=== PATIENT | female | born 1955 | race Hispanic/Latino ===

== ENCOUNTER 2016-11-21 13:26 | Outpatient (CLI) | payer OTHER ==
[2016-11-21 14:44] LABS: Hematocrit 41.7 % (36.0-47.0); Mean Platelet Volume 7.6 fL (7.4-10.4); Red Blood Cell (RBC) Count 4.58 mill/uL (4.20-5.40); White Blood Cell (WBC) Count 10.3 thou/uL (4.8-10.8)
[2016-11-21 14:52] LABS: PTT 29.8 SEC (22.9-36.1)
[2016-11-21 15:10] LABS: ALT (SGPT) 17 U/L (8-55); AST (SGOT) 16 U/L (5-34); Alkaline Phosphatase 72 U/L (40-150); Anion Gap 11 mmol/L (10-20); BUN (Urea Nitrogen) 9 mg/dL (9.8-20.1); Bilirubin, Total 0.4 mg/dL (0.2-1.2); Calc. Creatinine Clearance 0 mL/min (70-130); Calcium 9.4 mg/dL (7.8-10.44); Carbon Dioxide 21 mmol/L (22-29); Chloride 105 mmol/L (98-107); Estimated GFR-MDRD Greater than 90; Globulin 3.8 g/dL (2.4-3.5); Protein, Total 7.4 g/dL (6.0-8.3)
== END 2016-11-21 13:27 | disposition home or self-care (01) ==
LOC: LABBT 13:26
PROVIDERS: ATTEND Internal Medicine Cardiovascular Disease
DX: Z01.818 Encounter for other preprocedural examination (principal); R94.39 Abnormal result of other cardiovascular function study
CPT/HCPCS: 80053; 85027; 85610; 85730; 93005; 93010

== ENCOUNTER → 2016-11-25 | Day surgery (SDC) | payer OTHER ==
[2016-11-21 13:41] VITALS: BMI 39.1
[~2016-11-25] MED LIST: Diazepam 5 MG TAB ONE; Diazepam 5 MG TAB PO SCH; Fentanyl 100 MCG/2 ML VIAL ONE; Heparin 10,000 UNITS/1 ML VIAL ONE; Iopamidol 370 76% 100 ML VIAL ONE; Midazolam HCl 2 mg/2 ml Vial ONE; Nitroglycerin 100MG/250ML BOT 250 ML ONE; Sodium Chloride 0.9% 1,000 ML IV SCH; diphenhydrAMINE HCl 50 MG/ML 1 ML VIAL IVP SCH; diphenhydrAMINE HCl 50 MG/ML 1 ML VIAL ONE; methylPREDNISolone Sod Succ/PF 125 MG/2 ML VIAL IVP SCH; methylPREDNISolone Sod Succ/PF 125 MG/2 ML VIAL ONE
== END ==
LOC: CCL 05:56
PROVIDERS: ATTEND Internal Medicine Cardiovascular Disease
DX: I25.10 Atherosclerotic heart disease of native coronary artery without angina pectoris (principal); E78.5 Hyperlipidemia, unspecified; Z79.899 Other long term (current) drug therapy; Z91.041 Radiographic dye allergy status; Z86.73 Personal history of transient ischemic attack (TIA), and cerebral infarction without residual deficits
CPT/HCPCS: 80061; 93458; 99153; C1769; J1200; J1644; J2250; J2930; J3010

== ENCOUNTER 2016-11-29 08:08 | Outpatient (CLI) | payer OTHER ==
[2016-11-29 09:09] LABS: #Basophils 0.1 thou/uL (0.0-0.2); #Eosinphils 0.3 thou/uL (0.0-0.7); #Lymphocytes 3.1 thou/uL (1.20-3.40); #Monocytes 0.6 thou/uL (0.11-0.59); #Neutrophils 6.8 thou/uL (1.40-6.50); %Basophils 0.8 % (0.0-1.0); %Eosinophils 2.5 % (0.0-10.0); %Lymphocytes 28.6 % (21.0-51.0); %Monocytes 5.9 % (0.0-10.0); Hematocrit 45.1 % (36.0-47.0); Mean Platelet Volume 7.2 fL (7.4-10.4); Red Blood Cell (RBC) Count 5.01 mill/uL (4.20-5.40); White Blood Cell (WBC) Count 10.9 thou/uL (4.8-10.8)
[2016-11-29 09:25] LABS: Anion Gap 15 mmol/L (10-20); BUN (Urea Nitrogen) 18 mg/dL (9.8-20.1); Calc. Creatinine Clearance 0 mL/min (70-130); Calcium 9.7 mg/dL (7.8-10.44); Carbon Dioxide 23 mmol/L (22-29); Chloride 103 mmol/L (98-107); Estimated GFR-MDRD 89
== END 2016-11-29 08:09 | disposition home or self-care (01) ==
LOC: LABBT 08:08
PROVIDERS: ATTEND Surgery
DX: Z01.812 Encounter for preprocedural laboratory examination (principal); C50.919 Malignant neoplasm of unspecified site of unspecified female breast
CPT/HCPCS: 80048; 85025

== ENCOUNTER 2016-12-06 06:54 | Day surgery (SDC) | payer OTHER ==
[2016-11-29 08:29] VITALS: BMI 39.1
[2016-12-06] MEDS ORDERED: CEFAZOLIN/Water 2 GM/20 ML SYRINGE ONE (11:19)
[2016-12-06] MEDS ORDERED: Lidocaine 2% w/Epinephrine 1:200K 20 ML VIAL ONE (11:32)
[2016-12-06] MEDS ORDERED: Bupivacaine 0.25% HCL 30 ML VIAL ONE (11:32)
[2016-12-06] MEDS ORDERED: Midazolam HCl 2 mg/2 ml Vial ONE (11:42)
[2016-12-06] MEDS ORDERED: Fentanyl 100 MCG/2 ML VIAL ONE ×3 (11:42→13:48)
[2016-12-06] MEDS ORDERED: Lidocaine 1% PF 5 ML VIAL ONE (12:25)
[2016-12-06] MEDS ORDERED: Propofol 200 MG/20 ML VIAL ONE (12:25)
[2016-12-06] MEDS ORDERED: Dexamethasone 20 MG/5 ML VIAL ONE (12:25)
[2016-12-06] MEDS ORDERED: Ketorolac Tromethamine 30 MG/ML VIAL ONE (12:25)
[2016-12-06] MEDS ORDERED: Ondansetron HCl/PF 4 MG/2 ML Vial ONE (12:25)
[2016-12-06] MEDS ORDERED: HYDROcodone/Acetaminophen 5/325 mg Tablet ONE (14:48)
--- NOTE | 2016-12-09 11:54 | OP ---
DATE OF SURGERY: 12/06/2016 PREOPERATIVE DIAGNOSIS: Left breast ductal carcinoma in situ. POSTOPERATIVE DIAGNOSIS: Left breast ductal carcinoma in situ. PROCEDURE: Left partial mastectomy after needle localization. SURGEON: Isaac Ji M.D. ANESTHESIA: General. ESTIMATED BLOOD LOSS: Minimal. COMPLICATIONS: None. SPECIMEN: Left breast mass marked two short superior, one long lateral and sent to pathology for fi nal diagnosis. INDICATIONS: The patient is a 61-year-old female who presents with a core needle biopsy showing lef t breast DCIS. Risks, benefits, and alternatives were discussed and she elects to proceed with part ial mastectomy. The patient underwent needle localization wire placement in an area of previous bio psy preoperatively. TECHNIQUE: The patient was taken to the operating room and laid supine on the operating room table. After general anesthetic was obtained, left breast and chest was prepped and draped in a sterile f ashion. Transverse incision was made between the needle localization wire and the nipple. Flaps we re raised superiorly, inferiorly, laterally around the needle localization wire. The breast mass is marked with two short superior, one long lateral and sent to x-ray which revealed the previous clip to be in the specimen. It was then sent to path for final diagnosis. The wound was irrigated. Lo jose anesthetic was applied. The wound was closed using 3-0 Vicryl, 4-0 Monocryl, and Dermabond. Th e patient was en route to recovery in stable condition. All instrument counts, needle counts, and l ap counts were correct.
== END 2016-12-06 15:22 | disposition home or self-care (01) ==
LOC: SDC 06:54
PROVIDERS: ATTEND Surgery
PROC: 0HBU0ZZ Excision of Left Breast, Open Approach (ICD-10-PCS; principal; 2016-12-06)
DX: D05.12 Intraductal carcinoma in situ of left breast (principal); Z79.1 Long term (current) use of non-steroidal anti-inflammatories (NSAID); Z79.899 Other long term (current) drug therapy; Z91.041 Radiographic dye allergy status; Z91.013 Allergy to seafood; Z90.49 Acquired absence of other specified parts of digestive tract; Z98.890 Other specified postprocedural states
CPT/HCPCS: 19281; 76098; 88307; 96374; J1100; J1885; J2001; J2250; J2405; J2704; J3010; S0020

== ENCOUNTER 2020-03-09 06:58 | Day surgery (SDC) | payer OTHER ==
[2020-03-07 12:05] VITALS: BMI 39.4
[2020-03-09] MEDS ORDERED: PROPOFOL 200 MG/20 ML VIAL ONE (09:30)
[2020-03-09] MEDS ORDERED: ePHEDrine 50 MG/ML VIAL ONE (09:30)
[2020-03-09] MEDS ORDERED: Ketorolac Tromethamine 30 MG/ML VIAL ONE (09:30)
[2020-03-09] MEDS ORDERED: Ondansetron PF 4 MG/2 ML Vial ONE (09:30)
[2020-03-09] MEDS ORDERED: Dexamethasone 20 MG/5 ML VIAL ONE (09:30)
[2020-03-09] MEDS ORDERED: Lidocaine 1% PF 5 ML VIAL ONE (09:30)
[2020-03-09] MEDS ORDERED: Rocuronium Bromide 10 MG/ML (10ML VIAL) ONE (09:30)
[2020-03-09] MEDS ORDERED: Bupivacaine 0.25% HCL 30 ML VIAL ONE (10:28)
[2020-03-09] MEDS ORDERED: XYLOCAINE 2%-EPI 1:100,000 20 ML VIAL ONE (10:28)
[2020-03-09] MEDS ORDERED: Midazolam HCl 2 mg/2 ml Vial ONE (10:33)
[2020-03-09] MEDS ORDERED: Dexmedetomidine 200 MCG/2 ML VIAL ONE (10:33)
[2020-03-09] MEDS ORDERED: Fentanyl 100 MCG/2 ML VIAL ONE (10:33)
[2020-03-09] MEDS ORDERED: SUGAMMADEX SODIUM 500 MG/5 ML VIAL ONE (11:36)
--- NOTE | 2020-03-09 11:42 | MMO ---
EXAM: MAMMO Brst Loc Dev Mammo Guide PROVIDED CLINICAL HISTORY: Grouping of microcalcifications within the lower central right breast. Wire and needle localization prior to excisional biopsy was requested. COMPARISON: Mammograms on 09/27/2019. TECHNIQUE: After informed consent was obtained, the microcalcifications in the lower right breast were localized in the CC projection from an inferior approach. Area was meticulously prepped. The skin and subcutaneous tissues were infiltrated with buffered 1% lidocaine for local anesthesia. A [place] locali zation needle and wire were advanced. A CC projection and lateral medial projection were performed. Needle was withdrawn, and the wire was further advanced. Final right lateral medial view was obtained . A dry sterile dressing was placed. Patient tolerated the procedure well and without immediate complication. Patient was transported to surgery for excisional biopsy. IMPRESSION: Technically successful needle and wire localization of a grouping of microcalcifications in the lower right breast.
--- NOTE | 2020-03-09 11:47 | MMO ---
EXAM: MAMMO Surgial Specimen PROVIDED CLINICAL HISTORY: Specimen mammogram post needle and wire localization with excisional biopsy. COMPARISON: Mammograms on 09/27/2019 FINDINGS/IMPRESSION: Single specimen mammogram is submitted. Specimen demonstrates a grouping of microcalcifications seen centrally within the specimen. Additional scattered calcifications are also seen in the provided specimen. The [facility] [place] localization wire is not in place within the specimen. The microcalcifications co rrespond to the grouping of microcalcifications seen on prior mammograms. Dr. Ji was notified of the findings in the operating room.
[2020-03-09] MEDS ORDERED: Promethazine HCl 25 MG/ML VIAL ONE (12:33)
--- NOTE | 2020-03-09 17:09 | EKG ---
Test Reason : PREOP Blood Pressure : / mmHG Vent. Rate : 064 BPM Atrial Rate : 064 BPM P-R Int : 152 ms QRS Dur : 086 ms QT Int : 454 ms P-R-T Axes : 009 019 107 degrees QTc Int : 468 ms Normal sinus rhythm Cannot rule out Inferior infarct , age undetermined T wave abnormality, consider lateral ischemia Abnormal ECG No previous ECGs available Confirmed by DR. Heath AGUILERA ([id number]) on 03/09/2020 5:08:54 PM Referred By: CEASAR Confirmed By:DR. Heath AGUILERA
--- NOTE | 2020-03-10 13:25 | OP ---
DATE OF PROCEDURE: 03/09/2020 PREOPERATIVE DIAGNOSIS: Right breast mass. POSTOPERATIVE DIAGNOSIS: Right breast mass. PROCEDURE PERFORMED: Excision of right breast mass after needle localization. ANESTHESIA: General. ESTIMATED BLOOD LOSS: Minimal. COMPLICATIONS: None. SPECIMENS: Right breast mass. DESCRIPTION OF PROCEDURE: The patient was taken to the operating room and laid supine on the operating table. After general anesthetic was obtained, the right breast was prepped and draped in a sterile fashion. An incision was made near entrance of needle localization wire on the chest. Flaps were raised superior, inferior, posterior, and lateral around the end of needle localization wire. Specimen x-ray revealed the abnormality to be in the specimen. Specimen was sent to Path for final diagnosis. The wound was irrigated. Local anesthetic was applied. The wound was closed using through 3-0 Vicryl, 4-0 Monocryl, and Dermabond. The patient was sent to Recovery in stable condition. All instrument counts, needle counts, and lap counts were correct. Job ID: [id number]
== END 2020-03-09 13:35 | disposition home or self-care (01) ==
LOC: SDC 06:58
PROVIDERS: ATTEND Surgery
PROC: 0HBT0ZZ Excision of Right Breast, Open Approach (ICD-10-PCS; principal; 2020-03-09)
DX: N60.21 Fibroadenosis of right breast (principal); D24.1 Benign neoplasm of right breast; N60.91 Unspecified benign mammary dysplasia of right breast; Z79.899 Other long term (current) drug therapy; Z91.041 Radiographic dye allergy status
CPT/HCPCS: 19281; 76098; 88307; 88341; 88342; 93005; 93010; J0690; J1100; J1885; J2250; J2405; J2550; J2704; J3010; J3490; S0020

== ENCOUNTER 2020-03-09 21:02 | Observation (INO) | payer SELFPAY ==
[2020-03-09 21:30] LABS: #Lymphocytes 0.9 thou/uL (1.20-3.40); #Monocytes 0.1 thou/uL (0.11-0.59); #Neutrophils 7.9 thou/uL (1.40-6.50); %Basophils 0.1 % (0.0-1.0); %Eosinophils 0.1 % (0.0-10.0); %Lymphocytes 10.4 % (21.0-51.0); %Monocytes 0.6 % (0.0-10.0); %Neutrophils 88.8 % (42.0-75.0); Hemoglobin 13.8 g/dL (12.0-16.0); Mean Corpuscular HGB CONC 32.4 g/dL (32.0-36.0); Mean Corpuscular Volume 89.8 fL (78.0-98.0); Mean Platelet Volume 7.9 fL (7.4-10.4); Platelet Count 297 thou/uL (130-400); RBC Distribution Width 12.9 % (11.5-14.5); Red Blood Cell (RBC) Count 4.74 mill/uL (4.20-5.40)
[2020-03-09 21:36] LABS: PTT 28.6 sec (22.9-36.1); Prothrombin Time 13.3 sec (12.0-14.7)
[2020-03-09 21:45] LABS: ALT (SGPT) 20 U/L (8-55); AST (SGOT) 15 U/L (5-34); Albumin 3.7 g/dL (3.4-4.8); Alkaline Phosphatase 71 U/L (40-110); Anion Gap 15 mmol/L (10-20); BUN (Urea Nitrogen) 12 mg/dL (9.8-20.1); Bilirubin, Total 0.3 mg/dL (0.2-1.2); CK (CPK) 54 U/L (29-168); Calc. Creatinine Clearance 0 mL/min (70-130); Calcium 8.9 mg/dL (7.8-10.44); Carbon Dioxide 21 mmol/L (23-31); Chloride 105 mmol/L (98-107); Globulin 3.4 g/dL (2.4-3.5); Glucose 306 mg/dL (80-115); Potassium 4.2 mmol/L (3.5-5.1); Protein, Total 7.1 g/dL (5.8-8.1); Sodium 137 mmol/L (136-145)
[2020-03-09 22:06] LABS: CKMB 1.4 ng/mL (0-6.6)
[2020-03-09 22:46] LABS: Bacteria/HPF None Seen HPF (None Seen); Bilirubin Negative (Negative); Blood, Urine Negative (Negative); Clarity Clear (Clear); Glucose, Urine (Dipstick) Greater than 1000 mg/dL (Negative); Ketone, Urine Trace mg/dL (Negative); Leukocyte Negative Leu/uL (Negative); Nitrite Negative (Negative); Protein, Urine (Dipstick) 30 mg/dL (Neg-Trace); RBC/HPF None Seen HPF (0-3); Specific Gravity, Urine 1.028 (1.002-1.036); Squamous Epithelial 0-3 HPF (0-3); Urobilinogen Normal mg/dL (Less than 2); WBC/HPF 0-3 HPF (0-3); pH, Urine 5.5 (5.0-9.0)
[2020-03-09 22:57] LABS: Medtox Reader # READER 1
[2020-03-09 22:58] LABS: Amphetamine Not Detected (NotDetected); Barbiturates Screen Not Detected (NotDetected); Benzodiazepine Screen Not Detected (NotDetected); Cocaine Metabolite Screen Not Detected (NotDetected); Medtox Control Line Valid? VALID (VALID); Methadone Not Detected (NotDetected); Methamphetamine Detected (NotDetected); Opiate Screen Not Detected (NotDetected); Oxycodone Screen Not Detected (NotDetected); Phencyclidine (PCP) Not Detected (NotDetected); THC/Cannabinoid Screen Not Detected (NotDetected); Tricyclic Screen Not Detected (NotDetected)
[2020-03-09] MEDS ORDERED: Aspirin Chewable 81 MG TAB ONE (23:24)
[2020-03-10 02:05] VITALS: BMI 39.6
[2020-03-10] MEDS ORDERED: Acetaminophen 325 MG TAB PO PRN (03:35)
[2020-03-10] MEDS ORDERED: Acetaminophen 650 MG Suppository PR PRN (03:35)
[2020-03-10] MEDS ORDERED: Dextrose 5% in Water 1,000 ML IV PRN (03:36)
[2020-03-10] MEDS ORDERED: Dextrose 50% Abboject 50 ML SYRINGE SLOW IVP PRN (03:36)
[2020-03-10] MEDS ORDERED: HumaLOG 300 UNITS/3 ML VIAL SC PRN ×2 (03:36)
[2020-03-10 05:33] LABS: #Lymphocytes 1.6 thou/uL (1.20-3.40); #Monocytes 0.8 thou/uL (0.11-0.59); #Neutrophils 10.4 thou/uL (1.40-6.50); %Basophils 0.3 % (0.0-1.0); %Eosinophils 0.1 % (0.0-10.0); %Lymphocytes 12.2 % (21.0-51.0); %Monocytes 6.4 % (0.0-10.0); %Neutrophils 81.1 % (42.0-75.0); Hemoglobin 12.8 g/dL (12.0-16.0); Mean Corpuscular HGB CONC 31.8 g/dL (32.0-36.0); Mean Corpuscular Hemoglobin 28.8 pg (27.0-31.0); Mean Corpuscular Volume 90.6 fL (78.0-98.0); Mean Platelet Volume 7.7 fL (7.4-10.4); Platelet Count 311 thou/uL (130-400); RBC Distribution Width 12.9 % (11.5-14.5); Red Blood Cell (RBC) Count 4.45 mill/uL (4.20-5.40); White Blood Cell (WBC) Count 12.8 thou/uL (4.8-10.8)
[2020-03-10 05:37] LABS: Hemoglobin A1c 5.8 % (4.0-6.0)
[2020-03-10 05:54] LABS: Anion Gap 13 mmol/L (10-20); BUN (Urea Nitrogen) 12 mg/dL (9.8-20.1); Calc. Creatinine Clearance 133 mL/min (70-130); Calcium 9.1 mg/dL (7.8-10.44); Carbon Dioxide 23 mmol/L (23-31); Chloride 107 mmol/L (98-107); Glucose 129 mg/dL (80-115); Magnesium 1.8 mg/dL (1.6-2.6); Potassium 4.3 mmol/L (3.5-5.1); Sodium 139 mmol/L (136-145)
[2020-03-10 07:42] LABS: CKMB 1.8 ng/mL (0-6.6)
[2020-03-10] MEDS: Aspirin 81 mg Enteric Coated Tablet PO SCH (08:52)
[2020-03-10] MEDS: Famotidine 20 MG TAB PO SCH ×2 (08:52→20:26)
[2020-03-10] MEDS ORDERED: Lisinopril 10 MG TAB PO SCH (14:45)
[2020-03-10] MEDS ORDERED: Enoxaparin Sodium 40 MG/0.4 ML SYRINGE SC SCH (21:00)
[2020-03-10] MEDS ORDERED: Atorvastatin Calcium 40 MG TAB PO SCH (21:00)
[2020-03-11 05:09] LABS: #Basophils 0.1 thou/uL (0.0-0.2); #Eosinphils 0.1 thou/uL (0.0-0.7); #Lymphocytes 3.8 thou/uL (1.20-3.40); #Monocytes 0.8 thou/uL (0.11-0.59); #Neutrophils 6.9 thou/uL (1.40-6.50); %Basophils 0.9 % (0.0-1.0); %Eosinophils 0.5 % (0.0-10.0); %Lymphocytes 32.6 % (21.0-51.0); %Monocytes 6.6 % (0.0-10.0); %Neutrophils 59.4 % (42.0-75.0); Hemoglobin 12.3 g/dL (12.0-16.0); Mean Corpuscular HGB CONC 32.2 g/dL (32.0-36.0); Mean Platelet Volume 7.9 fL (7.4-10.4); Platelet Count 276 thou/uL (130-400); Red Blood Cell (RBC) Count 4.23 mill/uL (4.20-5.40); White Blood Cell (WBC) Count 11.6 thou/uL (4.8-10.8)
[2020-03-11 05:36] LABS: Anion Gap 11 mmol/L (10-20); BUN (Urea Nitrogen) 19 mg/dL (9.8-20.1); Calc. Creatinine Clearance 133 mL/min (70-130); Calcium 8.6 mg/dL (7.8-10.44); Carbon Dioxide 25 mmol/L (23-31); Cardiac Risk 4.3 (Less than 4.5); Chloride 104 mmol/L (98-107); Cholesterol 153 mg/dl (< 200 Desired); Glucose 104 mg/dL (80-115); HDL Cholesterol 36 mg/dL (>60 Neg Risk); LDL Cholesterol, Calculated 63 mg/dL; Sodium 136 mmol/L (136-145); Triglycerides 272 mg/dL (Less than 150)
[2020-03-11] MEDS: Famotidine 20 MG TAB PO SCH (08:51)
[2020-03-11] MEDS: Aspirin 81 mg Enteric Coated Tablet PO SCH (08:51)
[2020-03-11] MEDS ORDERED: Lisinopril 10 MG TAB PO SCH (09:00)
[2020-03-11] MEDS ORDERED: Zinc Sulfate 220 MG CAP PO SCH (09:00)
[2020-03-11 11:22] VITALS: TEMP 98.1
[2020-03-11 14:20] VITALS: BP 141/66
== END 2020-03-11 12:52 | disposition home or self-care (01) ==
LOC: ERS 21:02 → 2SE 03-10 00:24
PROVIDERS: ADMIT Internal Medicine; ATTEND Internal Medicine
DX: R47.81 Slurred speech (principal); R53.1 Weakness; R41.0 Disorientation, unspecified; I10 Essential (primary) hypertension; R73.9 Hyperglycemia, unspecified; E66.9 Obesity, unspecified; Z68.39 Body mass index [BMI] 39.0-39.9, adult; Z85.3 Personal history of malignant neoplasm of breast; Z79.899 Other long term (current) drug therapy; Z91.041 Radiographic dye allergy status
CPT/HCPCS: 36415; 36416; 70450; 70551; 80048; 80053; 80061; 80306; 80307; 81003; 81015; 82550; 82553; 83036; 83735; 83880; 84484; 85025; 85610; 85730; 93005; 93306; 93880; 95712; 95819; 95957; 96372; G0378; J1650